=== PATIENT | female | born 1965 | race Caucasian/White ===

== ENCOUNTER 2018-10-05 18:44 | Emergency (ER) | payer OTHER ==
[2018-10-05] MEDS: IBUPROFEN 800 MG TAB PO (19:32)
[2018-10-05] MEDS: HYDROCODONE/APAP (5/325) TAB PO (19:32)
== END 2018-10-05 21:19 | disposition home or self-care (01) ==
LOC: E/R 18:44
DX: S09.90XA Unspecified injury of head, initial encounter (principal); S83.92XA Sprain of unspecified site of left knee, initial encounter; R93.0 Abnormal findings on diagnostic imaging of skull and head, not elsewhere classified; W01.0XXA Fall on same level from slipping, tripping and stumbling without subsequent striking against object, initial encounter; Y92.410 Unspecified street and highway as the place of occurrence of the external cause
CPT/HCPCS: 29505; 70450; 73562; 99284-25